=== PATIENT | female | born 1950 | race Two or more races ===

== ENCOUNTER 2017-03-30 21:31 | Emergency (ER) | payer MEDICARE ==
[~2017-03-30] VITALS: Ht 157.5 cm; Wt 78.0 kg
[2017-03-30] MEDS ORDERED: BISOPRL/HC5 MG/6.25 PO (21:53)
[2017-03-30] MEDS ORDERED: FLURBIPROFEN100 MG PO (21:54)
[2017-03-30] MEDS ORDERED: OMEPRAZOLE10 MG PO (21:54)
[2017-03-30 23:48] LABS: IMMATURE GRANULOCYTES 0.4 % (0.0-1.0); MEAN CORPUSCULAR HGB 32.5 pG CALC (26.0-32.0); MEAN CORPUSCULAR HGB CONC 34.2 g/L CALC (32.0-36.0); NEUT# 4.31 thou/uL (2.00-7.15); RED CELL DISTRI WIDTH 11.9 % (11.5-15.5)
[2017-03-31 00:03] LABS: ALBUMIN 4.6 g/dL (3.2-5.0); ALKALINE PHOSPHATASE 83 u/l (38-126); ANION GAP 16 (6-22 (CALC)); BILIRUBIN, TOTAL 0.4 mg/dL (0.0-1.4); BUN 24 mg/dL (8-23); BUN/CREATININE RATIO 30 (12-20 (CALC)); CALCIUM 9.9 mg/dL (8.4-10.2); CARBON DIOXIDE 28 mmol/l (22-30); CHLORIDE 101 mmol/l (95-108); CREATININE 0.8 mg/dL (0.5-1.0); GFR > 60 ML/MIN (>=60 (CALC)); GFR FOR AFR.AMER. > 60 ML/MIN (>=60 (CALC)); GLUCOSE 95 mg/dL (82-115); POTASSIUM 4.5 mmol/l (3.5-5.1); SGOT/AST 24 u/l (9-36); SGPT/ALT 41 u/l (11-66); SODIUM 140 mmol/l (137-146); TOTAL PROTEIN 7.7 g/dL (6.3-8.2)
[2017-03-31] MEDS ORDERED: COMBIVIR 1501 COMBO PO (00:18)
[2017-03-31] MEDS ORDERED: CRIXIVAN400 MG PO (00:18)
[2017-03-31 00:36] VITALS: BP 151/81
== END 2017-03-31 00:36 | disposition home or self-care (01) ==
LOC: ED 21:31
PROVIDERS: Emergency Medicine
DX: S61.231A Puncture wound without foreign body of left index finger without damage to nail, initial encounter (principal); I10 Essential (primary) hypertension; M19.90 Unspecified osteoarthritis, unspecified site; W46.0XXA Contact with hypodermic needle, initial encounter; Y93.F9 Activity, other caregiving; Y92.009 Unspecified place in unspecified non-institutional (private) residence as the place of occurrence of the external cause

== ENCOUNTER 2020-04-14 09:58 | Emergency (ER) | payer MEDICARE ==
[~2020-04-14] VITALS: Ht 157.5 cm; Wt 70.9 kg
[~2020-04-14 09:58] MED LIST: BISOPRL/HC5 MG/6.25 PO; COMBIVIR 1501 COMBO PO; CRIXIVAN400 MG PO; FLURBIPROFEN100 MG PO; OMEPRAZOLE10 MG PO
[2020-04-14 10:57] LABS: HEMATOCRIT 41.9 % (37.0-47.0); HEMOGLOBIN 14.3 g/dl (12.0-16.0); IMMATURE GRANULOCYTES 0.2 % (0.0-5.0); MEAN CELL VOLUME 92.9 fL CALC (80.0-100.0); MEAN CORPUSCULAR HGB 31.7 pG CALC (26.0-32.0); MEAN CORPUSCULAR HGB CONC 34.1 g/dL CAL (32.0-36.0); NEUT# 3.65 thou/uL (2.00-7.15); RED BLOOD COUNT 4.51 mill/uL (4.20-5.60); RED CELL DISTRI WIDTH 12.1 % (11.5-15.5); URINE BILIRUBIN - DIPSTICK NEGATIVE (NEGATIVE); URINE BLOOD DIPSTICK NEGATIVE (NEGATIVE); URINE COLOR YELLOW; URINE GLUCOSE - DIPSTICK NEGATIVE (NEGATIVE); URINE KETONE 15 mg/dL (NEGATIVE); URINE LEUK ESTERASE TRACE (NEGATIVE); URINE NITRITE - DIPSTICK POSITIVE (Negative); URINE PH 5.5 (4.5-8.0); URINE PROTEIN - DIPSTICK 100 mg/dL (NEG-TRACE); URINE SPECIFIC GRAVITY 1.025; URINE UROBILINOGEN - DIPSTICK 0.2 E.U./dL (0.2)
[2020-04-14] MEDS ORDERED: ALPRAZOLAM0.25 MG PO (11:00)
[2020-04-14] MEDS ORDERED: FLOVENT DI50 MCG/BLI (11:02)
[2020-04-14 11:09] LABS: URINE BACTERIA MANY hpf; URINE TRANSITIONAL EPI. CELLS FEW hpf; URINE WBC 20-50 WBC/hpf (0-5)
[2020-04-14 11:10] LABS: ALBUMIN 4.6 g/dL (3.2-5.0); ALKALINE PHOSPHATASE 102 u/l (38-126); ANION GAP 11 (6-22 (CALC)); BILIRUBIN, TOTAL 0.5 mg/dL (0.0-1.4); BUN 10 mg/dL (8-23); BUN/CREATININE RATIO 13 (12-20 (CALC)); CARBON DIOXIDE 30 mmol/l (22-30); CHLORIDE 93 mmol/l (95-108); CREATININE 0.8 mg/dL (0.5-1.0); GFR > 60 ML/MIN (>=60 (CALC)); GFR FOR AFR.AMER. > 60 ML/MIN (>=60 (CALC)); POTASSIUM 3.3 mmol/l (3.5-5.1); SGOT/AST 43 u/l (9-36); SODIUM 131 mmol/l (137-146); TOTAL PROTEIN 7.9 g/dL (6.3-8.2)
[2020-04-14] MEDS ORDERED: KEFLEX500 M1 PO (12:37)
[2020-04-14 13:03] VITALS: BP 165/79
--- NOTE | 2020-04-16 08:15 | NUR ---
PRELIMINARY BLOOD CX RESULTS SHOW GRAM POSITIVE COCCI IN 1/[address] MONTANO IN ER MADE AWARE. CALLED AND SPOKE WITH PT, REPORTS SHE FEELS OK, HAD LOW FEVER OF 100.4 LAST NIGHT BUT NO WEAKNESS AND NO CHILLS. EXPLAINED PRELIM RESULTS WITH PT, ADVISED TO FOLLOW UP WITH PCP OR RETURN TO ER IF SYMPTOMS WORSEN. PT UNDERSTOOD AND AGREED/
--- NOTE | 2020-04-18 07:39 | NUR ---
FINAL BLOOD CULTURE RESULTS SHOW STAPH HOMINIS IN 1/4 VIALS. THE PATIENT WAS SEEN BY . LIKELY CONTAMINANT, NO FOLLOW UP NEEDED.
== END 2020-04-14 12:53 | disposition home or self-care (01) ==
LOC: ED 09:58
PROVIDERS: Student in an Organized Health Care Education/Training Program
DX: U07.1 COVID-19 (principal); R19.7 Diarrhea, unspecified; N39.0 Urinary tract infection, site not specified; E87.1 Hypo-osmolality and hyponatremia; I10 Essential (primary) hypertension; E86.0 Dehydration; B96.20 Unspecified Escherichia coli [E. coli] as the cause of diseases classified elsewhere

== ENCOUNTER 2020-04-16 10:22 | Emergency (ER) | payer MEDICARE ==
[~2020-04-16] VITALS: Ht 157.5 cm; Wt 80.0 kg
[~2020-04-16 10:22] MED LIST changes: +ALPRAZOLAM0.25 MG PO; +FLOVENT DI50 MCG/BLI; +KEFLEX500 M1 PO
[2020-04-16 11:17] LABS: HEMATOCRIT 37.7 % (37.0-47.0); HEMOGLOBIN 12.8 g/dl (12.0-16.0); IMMATURE GRANULOCYTES 0.3 % (0.0-5.0); MEAN CELL VOLUME 92.9 fL CALC (80.0-100.0); MEAN CORPUSCULAR HGB 31.5 pG CALC (26.0-32.0); NEUT# 4.84 thou/uL (2.00-7.15); RED BLOOD COUNT 4.06 mill/uL (4.20-5.60); RED CELL DISTRI WIDTH 11.9 % (11.5-15.5)
[2020-04-16 11:36] LABS: ALBUMIN 3.9 g/dL (3.2-5.0); ALKALINE PHOSPHATASE 113 u/l (38-126); ANION GAP 11 (6-22 (CALC)); BILIRUBIN, TOTAL 0.6 mg/dL (0.0-1.4); BUN 8 mg/dL (8-23); BUN/CREATININE RATIO 14 (12-20 (CALC)); CARBON DIOXIDE 29 mmol/l (22-30); CHLORIDE 94 mmol/l (95-108); CREATININE 0.6 mg/dL (0.5-1.0); GFR > 60 ML/MIN (>=60 (CALC)); GFR FOR AFR.AMER. > 60 ML/MIN (>=60 (CALC)); POTASSIUM 3.1 mmol/l (3.5-5.1); SGOT/AST 40 u/l (9-36); SODIUM 131 mmol/l (137-146); TOTAL PROTEIN 6.8 g/dL (6.3-8.2)
[2020-04-16 13:14] VITALS: BP 145/68
== END 2020-04-16 13:45 | disposition home or self-care (01) ==
LOC: ED 10:22
PROVIDERS: Student in an Organized Health Care Education/Training Program
DX: U07.1 COVID-19 (principal); J12.89 Other viral pneumonia; R19.7 Diarrhea, unspecified; R11.2 Nausea with vomiting, unspecified; I10 Essential (primary) hypertension
CPT/HCPCS: Q9967